=== PATIENT | male | born 1960 | race Caucasian/White ===

== ENCOUNTER 2022-06-28 15:20 | Emergency (ER) | payer BC ==
[2022-06-28] MEDS ORDERED: Ondansetron 4 MG/2 ML SDV IVPUSH ONE (15:58)
[2022-06-28] MEDS ORDERED: HYDROmorphone 2 MG/ML SDV IVPUSH ONE (15:58)
[2022-06-28] MEDS: HYDROmorphone 2 MG/ML Syringe ONE ×2 (16:10→17:22)
[2022-06-28] MEDS ORDERED: Ondansetron 4 MG/2 ML SDV ONE (16:11)
[2022-06-28] MEDS ORDERED: Ketorolac 30 MG/ML SDV IVPUSH ONE (16:47)
[2022-06-28] MEDS ORDERED: Ketorolac 30 MG/ML SDV ONE (16:58)
[2022-06-28] MEDS ORDERED: Ondansetron 4 MG Tab.DIS ONE (18:00)
[2022-06-28] MEDS ORDERED: Acetaminophen/oxyCODONE 325-5 MG Tab ONE (18:00)
== END 2022-06-28 18:15 | disposition home or self-care (01) ==
LOC: LB.ED 15:20
DX: R10.11 Right upper quadrant pain (principal); Z79.82 Long term (current) use of aspirin; Z79.899 Other long term (current) drug therapy
CPT/HCPCS: 36415; 74176; 80053; 81001; 83690; 85025; 96374; 96375; 99283; 99284-25; A9270-GY; J1170; J1885; J2405; Q0162